=== PATIENT | female | born 1990 | race Caucasian/White ===

== ENCOUNTER 2018-05-12 06:26 | Emergency (ER) | payer OTHER ==
[~2018-05-12] VITALS: Ht 170.2 cm; Wt 68.0 kg
[~2018-05-12 06:26] MED LIST: IBUPROFEN 800800 MG PO; NOHOMEMEDICATIONS; NORCO 5-325 TA1 EACH PO
[2018-05-12 07:18] LABS: BE -0.4 mmol/L (-2 to +3); HCO3 22.3 mmol/L (22.0-26.0); PCO2 31.2 mmHg (35.0-45.0); PO2 91.4 mmHg (75.0-100.0); pH 7.472 (7.340-7.450)
[2018-05-12 07:24] VITALS: BP 151/93
== END 2018-05-12 07:24 | disposition home or self-care (01) ==
LOC: M.ERS 06:26
PROVIDERS: Emergency Medicine
DX: R06.02 Shortness of breath (principal); J45.909 Unspecified asthma, uncomplicated; Z88.0 Allergy status to penicillin; Z88.2 Allergy status to sulfonamides